=== PATIENT | male | born 1965 | race Caucasian/White ===

== ENCOUNTER 2025-10-14 07:53 | Day surgery (SDC) | payer MEDICARE ==
[~2025-10-14 07:53] MED LIST: Lactated Ringers 1,000 ML IV SCH
[2025-10-14] MEDS ORDERED: Zofran 4 MG/2 ML VIAL IV PRN (08:00)
[2025-10-14] MEDS ORDERED: ACETAZOLAMIDE 250 MG TABLET PO ONE (08:00)
[2025-10-14] MEDS ORDERED: VIGAMOX/BSS 0.15% SYR IO NR (08:00)
[2025-10-14] MEDS ORDERED: DEXTENZA OP NR (08:00)
[2025-10-14] MEDS ORDERED: BETADINE 5% OPHTHALMIC 30 ML OP NR (08:00)
[2025-10-14] MEDS ORDERED: DEXMEDETOMIDINE 80 MCG/20ML-NS IV NR (08:00)
[2025-10-14] MEDS ORDERED: OMIDRIA 1-0.3% VIAL IO NR (08:00)
[2025-10-14] MEDS ORDERED: TRIAMCINOLONE 15 MG/ML INJ INTRAOP NR (08:00)
[2025-10-14 08:12] VITALS: BP 148/93; PULSE 68; RESP 16; TEMP 96.8; O2SAT 99
[2025-10-14] MEDS: TETRACAINE 0.5% STERI-UNIT SOL OP ONE ×2 (08:24→08:41)
[2025-10-14] MEDS: Ak-Dilate OPHTHALMIC*** 0.71 ML, Cyclogyl 1% OPHTH SOL 0.71 ML, GATIFLOXACIN 0.5% OPHTH... OP SCH (08:25)
[2025-10-14 08:39] LABS: Glucose 195.0 mg/dL (74-106); Potassium 3.5 mmol/L (3.5-5.1)
[2025-10-14 08:50] LABS: Calcium 8.5 mg/dL (8.4-10.2); Creatinine 1 1.06 mg/dL (0.66-1.25); EST GLOMERULAR FILTRATION RATE 80.8 ML/MIN
[2025-10-14 08:51] LABS: Carbon Dioxide 15.0 mmol/L (22-30)
[2025-10-14] MEDS ORDERED: HUMALOG ONE (09:25)
[2025-10-14] MEDS: HUMALOG SQ ONE (09:28)
[2025-10-14 10:02] LABS: Glucose, Urine Negative (Negative); Protein,Urine Dip 100 (Negative); RBC 0-2 /HPF (0-5); WBC 0-2 /HPF (0-5)
[2025-10-14 12:26] LABS: Calcium 8.0 mg/dL (8.4-10.2); Creatinine 1 0.97 mg/dL (0.66-1.25); EST GLOMERULAR FILTRATION RATE 89.9 ML/MIN; Glucose 124.0 mg/dL (74-106); Potassium 3.3 mmol/L (3.5-5.1)
[2025-10-14 12:33] LABS: Carbon Dioxide 16.0 mmol/L (22-30)
== END 2025-10-14 12:53 | disposition home or self-care (01) ==
LOC: SDC 07:53
PROVIDERS: ATTEND Ophthalmology
DX: E11.9 Type 2 diabetes mellitus without complications (principal); E78.00 Pure hypercholesterolemia, unspecified; Z79.899 Other long term (current) drug therapy; Z53.8 Procedure and treatment not carried out for other reasons